=== PATIENT | female | born 2000 | race American Indian/Alaskan Native ===

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

== ENCOUNTER 2022-05-05 21:39 | Emergency (ER) | payer OTHER ==
[2022-05-05] MEDS ORDERED: diphenhydrAMINE 25 MG/10 ML ORAL LIQUID PO ONE (21:52)
[2022-05-05 22:20] VITALS: BP 123/78
== END 2022-05-07 06:25 | disposition left against medical advice (07) ==
LOC: ED 21:39
DX: R56.9 Unspecified convulsions (principal); Z53.21 Procedure and treatment not carried out due to patient leaving prior to being seen by health care provider
CPT/HCPCS: Q0163

== ENCOUNTER 2022-05-07 10:44 | Emergency (ER) | payer SELFPAY ==
[2022-05-07 15:58] LABS: Basophils # (Auto) 0.1 K/mm3 (0.0-0.1); Basophils % (Auto) 0.9 % (0.0-1.8); Eosinophils # (Auto) 0.1 K/mm3 (0.0-0.4); Eosinophils % (Auto) 1.3 % (0.0-4.3); Hematocrit 33.4 % (30.3-42.9); Hemoglobin 11.1 gm/dl (10.1-14.3); Lymphocytes # (Auto) 3.1 K/mm3 (1.2-5.4); Mean Corpuscular HGB Conc 33 % (30-34); Mean Corpuscular Volume 81 fl (79-97); Monocytes # (Auto) 0.6 K/mm3 (0.0-0.8); Monocytes % (Auto) 6.4 % (0.0-7.3); Platelet Count 344 K/mm3 (140-440); Red Blood Count 4.12 M/mm3 (3.65-5.03); Red Cell Distribution Width 13.8 % (13.2-15.2)
[2022-05-07 16:20] LABS: Alanine Aminotransferase 7 units/L (7-56); Albumin 4.6 g/dL (3.9-5); Blood Urea Nitrogen 8 mg/dL (7-17); Calcium 9.8 mg/dL (8.4-10.2); Hemolysis Index 2
[2022-05-07 16:21] LABS: BUN/Creatinine Ratio 11
--- NOTE | 2022-05-07 22:38 | Emergency Department Report ---
ED Anxiety HPI - General Chief Complaint: Psych Stated Complaint: CAN'T BREATH/DIZZY/CHEST PAIN Time Seen by Provider: 05/07/22 22:12 Source: patient Mode of arrival: Ambulatory Limitations: No Limitations - History of Present Illness Initial Comments: Patient is a 21-year-old female with history of epilepsy presenting with multiple complaints. States she has been out of her seizure medication since Monday and reports waking up that morning with loss of short-term memory. States she also felt chest pains and shortness of breath. States she felt like she was going to have a seizure and tried to walk around her house to prevent it from occurring which apparently worked. At this time she still reports mild lightheadedness. - Related Data Home Medications: Previous Rx's Medication Instructions Recorded Last Taken Type levETIRAcetam [Keppra TAB] 500 mg PO BID #2 tablet 07/18/21 Unknown Rx Albuterol Sulfate [Proair 90 mcg IH Q4HR PRN #2 aer.[email or web address] 08/30/21 Unknown Rx Respiclick] Ibuprofen [Motrin] 400 mg PO Q8H PRN #30 tablet 08/30/21 Unknown Rx LORazepam [Ativan] 0.5 mg PO Q6H PRN #3 tablet 05/07/22 Unknown Rx Allergies/Adverse Reactions: Allergies Allergy/AdvReac Type Severity Reaction Status Date / Time Penicillins AdvReac Hives Verified 08/30/21 22:03 ED Review of Systems ROS: Stated complaint: CAN'T BREATH/DIZZY/CHEST PAIN Other details as noted in HPI Comment: All other systems reviewed and negative Constitutional: denies: chills, fever Respiratory: shortness of breath. denies: cough, wheezing Cardiovascular: chest pain. denies: palpitations Genitourinary: denies: urgency, dysuria, discharge Musculoskeletal: denies: back pain, joint swelling, arthralgia Skin: denies: rash, lesions Neurological: denies: headache, weakness Psychiatric: denies: anxiety, depression ED Past Medical Hx - Past Medical History Previous Medical History?: Yes Hx Seizures: Yes (started 3 weeks ago 2020) - Surgical History Past Surgical History?: Yes Additional Surgical History: T & A - Social History Smoking Status: Never Smoker Substance Use Type: None - Medications Home Medications: Home Medications Medication Instructions Recorded Confirmed Last Taken Type levETIRAcetam [Keppra TAB] 500 mg PO BID #2 tablet 07/18/21 Unknown Rx Albuterol Sulfate [Proair 90 mcg IH Q4HR PRN #2 aer.pow.ba 08/30/21 Unknown Rx Respiclick] Ibuprofen [Motrin] 400 mg PO Q8H PRN #30 tablet 08/30/21 Unknown Rx LORazepam [Ativan] 0.5 mg PO Q6H PRN #3 tablet 05/07/22 Unknown Rx ED Physical Exam - General Limitations: No Limitations General appearance: alert, in no apparent distress - Head Head exam: Present: atraumatic, normocephalic - Neck Neck exam: Present: normal inspection - Respiratory Respiratory exam: Present: normal lung sounds bilaterally. Absent: respiratory distress, wheezes, rales, rhonchi, stridor, accessory muscle use, prolonged expiratory - Cardiovascular Cardiovascular Exam: Present: regular rate, normal rhythm, normal heart sounds - GI/Abdominal GI/Abdominal exam: Present: soft. Absent: distended, tenderness - Rectal Rectal exam: Present: deferred - Neurological Exam Neurological exam: Present: alert, oriented X3 - Psychiatric Psychiatric exam: Present: normal affect, normal mood - Skin Skin exam: Present: warm, dry, intact, normal color ED Course Vital Signs 05/07/22 11:31 Temperature 98.8 F Pulse Rate 97 H Respiratory 22 Rate Blood Pressure 111/69 [Right] O2 Sat by Pulse 100 Oximetry ED Medical Decision Making - Lab Data Result diagrams: 05/07/22 15:21 05/07/22 15:21 - Medical Decision Making CBC and CMP grossly unremarkable. Patient currently appears in no acute distress. Vital signs are stable. Suspect possible anxiety/panic attack. She is stable for discharge home with return precautions Critical care attestation.: If time is entered above; I have spent that time in minutes in the direct care of this critically ill patient, excluding procedure time. ED Disposition Clinical Impression: Panic attack Disposition: 01 HOME / SELF CARE / HOMELESS Is pt being admited?: No Does the pt Need Aspirin: No Condition: Stable Instructions: Panic Attack, [id number], Managing Anxiety, Adult
[2022-05-07 23:27] VITALS: BP 126/71
== END 2022-05-07 23:26 | disposition home or self-care (01) ==
LOC: ED 10:44
DX: F41.0 Panic disorder [episodic paroxysmal anxiety] (principal); R56.9 Unspecified convulsions; Z88.0 Allergy status to penicillin; Z79.899 Other long term (current) drug therapy
CPT/HCPCS: 36415; 80053; 84703; 85025; 99283